=== PATIENT | male | born 1970 | race Caucasian/White ===

== ENCOUNTER 2020-04-23 01:40 | Outpatient (CLI) | payer SELFPAY ==
[2020-04-25 05:30] LABS: Patient Race White; SARS-CoV-2 RNA Undetected (Undetected); SARS-CoV-2 Specimen Source Nasopharynx
== END 2020-04-23 02:00 ==
PROVIDERS: PCP Family Medicine; Visit Provider Nurse Practitioner Family
DX: Z11.59 Encounter for screening for other viral diseases (principal)
CPT/HCPCS: U0003

== ENCOUNTER 2020-12-24 15:42 | Emergency (ER) | payer SELFPAY ==
--- NOTE | 2020-12-24 16:00 | DI.RAD_ITS ---
Exam(s) XR KNEE LT 3V AP,LAT,TREVA EXAM: XR KNEE LT 3V AP,LAT,TREVA CLINICAL HISTORY: Swelling, Pain. TECHNIQUE: 2D digital imaging was performed. COMPARISON: CR,XR XR KNEE RT 3V AP,LAT,TREVA from 12/24/2020 FINDINGS: BONES: No acute fracture is present. No bony destructive lesion is seen. Findings of a prior ACL rep air. JOINTS: The knee is normally aligned. There is a small joint effusion. Degenerative changes are seen in the knee particularly the femoral tibial joints. Joint space narrowing and periarticular spurrin g is present. SOFT TISSUE: Mild soft tissue swelling anterior to the patella. IMPRESSION: 1. No acute fracture or dislocation. 2. Soft tissue swelling anterior to the patella. 3. Mild degenerative changes. 4. Mild joint effusion. DATA REPOSITORY: RADIATION DOSE DELIVERED:
--- NOTE | 2020-12-24 16:00 | DI.RAD_ITS ---
Exam(s) XR FOOT LT COMPLETE EXAM: XR FOOT LT COMPLETE CLINICAL HISTORY: Heel pain, Right toe swelling, R/O Fracture. TECHNIQUE: 2D digital imaging was performed. COMPARISON: No exams were available for comparison FINDINGS: BONES: No acute fracture is present. No bony destructive lesion is seen. JOINTS: No dislocation present. SOFT TISSUE: Normal. Calcification is seen adjacent to the Achilles tendon insertion site consistent with calcific tendinitis. IMPRESSION: No acute fracture or dislocation. DATA REPOSITORY: RADIATION DOSE DELIVERED:
--- NOTE | 2020-12-24 16:00 | DI.RAD_ITS ---
Exam(s) XR FOOT RT COMPLETE EXAM: XR FOOT RT COMPLETE CLINICAL HISTORY: Great toe swelling/R/O Fracture. TECHNIQUE: 2D digital imaging was performed. COMPARISON: No exams were available for comparison FINDINGS: BONES: No acute fracture is present. No bony destructive lesion is seen. JOINTS: No dislocation present. Mild degenerative changes are seen at the 1st MTP joint. SOFT TISSUE: Calcification is seen adjacent to the posterior superior calcaneus consistent with calci fic tendinitis. IMPRESSION: No acute fracture or dislocation. DATA REPOSITORY: RADIATION DOSE DELIVERED:
--- NOTE | 2020-12-24 16:00 | DI.RAD_ITS ---
Exam(s) XR KNEE RT 3V AP,LAT,TREVA EXAM: XR KNEE RT 3V AP,LAT,TREVA CLINICAL HISTORY: Swelling/pain. TECHNIQUE: 2D digital imaging was performed. COMPARISON: CR ABD FLAT UPRIGHT PA CHEST from 04/17/2015 FINDINGS: BONES: No acute fracture is present. No bony destructive lesion is seen. JOINTS: The knee is normally aligned. No joint effusion is seen. SOFT TISSUE: There is swelling of the prepatellar soft tissues. IMPRESSION: 1. No acute fracture or dislocation. 2. Prepatellar soft tissue swelling. DATA REPOSITORY: RADIATION DOSE DELIVERED:
[2020-12-24 16:04] VITALS: BP 134/85; PULSE 87; RESP 18; TEMP 37.2; O2SAT 96
--- NOTE | 2020-12-24 16:16 | W.ED.GENAD ---
Discharge Plan Disposition Patient Disposition: HOME Condition: Stable Discharge Details Clinical Impression: Gout, Prepatellar bursitis Primary Care Provider: Katie Hahn ED Provider: Francie More Home Meds and New Rx's Prescriptions: New cephalexin 500 mg tablet 500 mg PO BID 7 Days Qty: 14 RF: 0 indomethacin 25 mg capsule 25 mg PO TID 7 Days Qty: 21 RF: 0 Discharge Instructions Instructions: Cellulitis (ED), Knee Bursitis (ED), Gout (ED) Additional Instructions: Rest, ice, compression, elevation. Take medications as directed with food. Cut down on alcohol use. Follow up with primary care provider in 3-5 days. Return to ED sooner if any worsening or concerns. Increase oral fluids. Follow-up with Ortho within 1 to 2 weeks if continued pain and swelling. Please return to the ED for worsening redness, fever, chills or any concerns Stand Alone Forms: Work Release Referrals: Katie Hahn NP [Primary Care Provider] - Casey Cruz MD [ [facility] STAFF PHYSICIAN] - 2 weeks Discharge Data Discharge Date/Time-TO BE ENTERED AT DEPARTURE: 12/24/20 19:00 Medical Decision Making 50 year old male presents with Chief c/o of bilateral foot/great toe pain, swelling and bilateral knee swelling and pain x 11 days. Associated with Muscle cramps, overall fatigue and feeling unwell. was seen at urgent care [employer] received Toradol IM and referred here. He does endorse daily alcohol use. PMhx includes Back pain, Colitis, Hyperlipidemia. Labs showed no leukocytosis, absolute neutrophils 6.90 sed rate twenty-four, electrolytes all within normal limits glucose one thirteen, AST forty-one, ALT eighty-five, alk phos one seventy-five, Lyme panel added onto labs. Differential diagnosis includes but not limited to gout, cellulitis, septic joint, Arthritis. Imaging protocol: XR Right foot. Views: 3 or more views. COMPARISON: No relevant prior studies available. FINDINGS: Bones/joints: Osseous mineralization is normal. There are no inflammatory osseous erosive changes. The joint spaces are maintained with scattered minimal degenerative changes. The plantar arch is maintained. There is a tiny posterior calcaneal spur. There is a tiny linear calcification superior to the posterior calcaneal spur suggesting minimal calcific tendinosis of the distal Achilles tendon. No focal osseous lesions are identified. There are no acute displaced fractures or subluxations. Soft tissues: Normal. IMPRESSION: 1. Scattered minimal degenerative changes. 2. Tiny posterior calcaneal spur. 3. Findings suggesting minimal calcific tendinosis of the distal Achilles tendon. Thank you for allowing us to participate in the care of your patient. Dictated and Authenticated by: Edinson Rapp MD Patient received 1 g ceftriaxone IV piggyback for possible cellulitis. Will place patient on 500 mg cephalexin twice daily x7 days and indomethacin 25 mg three times a day x7 days. Described alcohol cessation and gout diet, verbalized understanding. Instructed on rest ice compression elevation. Discussed strict return instructions and to return for any worsening erythema swelling fever or any concerns. Patient verbalized understanding. HPI General Mode of arrival: ambulatory. Date/Time Provider Initiated Documentation: 12/24/20 16:01. Limitations to Documentation: no limitations. Information obtained by: patient. HPI Narrative: 50 year old male presents with Chief c/o of bilateral foot/great toe pain, swelling and bilateral knee swelling and pain x 11 days. Associated with Muscle cramps, overall fatigue and feeling unwell. was seen at urgent care [employer] received Toradol IM and referred here. He does endorse daily alcohol use. PMhx includes Back pain, Colitis, Hyperlipidemia. Related Data Home Medications Medication Instructions Recorded Confirmed cephalexin 500 mg PO BID 7 Days #14 tab 12/24/20 indomethacin 25 mg PO TID 7 Days #21 cap 12/24/20 Previous Rx's Medication Instructions Recorded cephalexin 500 mg PO BID 7 Days #14 tab 12/24/20 indomethacin 25 mg PO TID 7 Days #21 cap 12/24/20 Allergies Allergy/AdvReac Type Severity Reaction Status Date / Time No Known Allergies Allergy Verified 12/24/20 16:11 General Stated Complaint: Orthopedic LEONIDES: 4 Review of Systems Narrative: Constitutional: Negative for weight loss, alert and oriented, well groomed, normal body habitus, appears comfortable. Reports generalized fatigue. HEENT: Denies trauma, headaches, blurry vision, nasal discharge, sore throat, trouble swallowing. Chest: Denies chest pain, palpitations, irregular rhythm, hypertension. Respiratory: Denies Shortness of breath, cough, hemoptysis. GI: Denies abdominal pain, nausea, vomiting, diarrhea, constipation. : Denies dysuria, hematuria, flank pain, rectal bleeding. Neuro: Denies dizziness, blurry vision, weakness, syncope, headache or facial numbness. Musculoskeletal: Reports bilateral foot and toe joint pain and swelling for the last 11 days. Then began with progressive muscle cramps and bilateral knee pain and swelling. Hematologic: Denies easy bruising, intolerance to heat or cold, hair loss. All systems reviewed & are unremarkable except as noted in HPI and below PFSH Medical History Back pain Colitis Hyperlipidemia Surgical History Laparotomy (04/18/15) Social History Smoking/Tobacco Use Status: Current every day Tobacco Type: cigarettes Smoking risk assessment performed?: Yes Alcohol Intake: current Alcohol Intake frequency: 3 or more drinks per day Alcohol type: beer Drug use: Never Substance use type: does not use Do you feel safe at home: Yes Do you feel safe in your relationship?: Yes Exam Narrative Exam Narrative: Constitutional: Alert and oriented x3. Appears stated age. Normal body habitus. Head: Normocephalic, no trauma. Eyes: Pupils PERRLA, Red reflex noted, EOM's intact. Eyelids symmetrical without lesions, discharge, or swelling. ENT: Bilateral TM's WNL, External ear normal to inspection, no mastoid TTP, swelling, or erythema, Nasal turbinates WNL, no nasal discharge. Normal dentition, Posterior pharynx WNL, no exudate. Chest: RRR, Normal S1, S2, distal pulses intact. Resp: Lungs clear to auscultation bilaterally, no wheezes, rales, or rhonchi. Musculoskeletal: Normal gait, 5/5 strength to all four extremities. Right knee erythema, warmth, Pre-patella fluid noted. Left knee erythema noted, less than right. Bilateral swelling and erythema noted to the great toe joint, there is some ecchymosis noted to the right toe. No obvious deformity or crepitus, Skin: No suspicious rashes or lesions. Capillary refill less than 2 sec. Neurologic: Cranial nerves II-XII intact. Alert and oriented x 3. DTR's intact. Hematologic/Lymphatic: No ecchymosis, no lymphadenopathy. Course Vital Signs Vital signs: Vital Signs Temperature 37.2 C 12/24/20 16:04 Pulse 87 12/24/20 16:04 Respiratory Rate 18 12/24/20 16:04 Blood Pressure 134/85 12/24/20 16:04 Pulse Oximetry 96 12/24/20 16:04 Temperature 37.2 C 12/24/20 16:04 Temperature Source Temporal Artery Scan 12/24/20 16:04 Pulse 87 12/24/20 16:04 Respiratory Rate 18 12/24/20 16:04 Respiratory Effort Non-Labored 12/24/20 16:12 Blood Pressure 134/85 12/24/20 16:04 Blood Pressure Position Sitting 12/24/20 16:04 Pulse Oximetry 96 12/24/20 16:04 Oxygen Delivery Method Room Air 12/24/20 16:04 Oxygen Flow Rate 0 12/24/20 16:04 Pain Level 2 12/24/20 16:04
[2020-12-24 16:38] LABS: Abs Immature Grans 0.02 10^3/uL (0.0-0.06); Absolute Basophil Count 0.03 10^3/uL (0.0-0.2); Absolute Eosinophil Count 0.08 10^3/uL (0.0-0.7); Absolute Lymphocyte Count 1.14 10^3/uL (1.2-3.4); Absolute Monocyte Count 0.63 10^3/uL (0.1-0.8); Basophils % 0.3; Eosinophils % 0.9; HCT 43.3 % (40.0-50.0); HGB 14.7 g/dL (13.5-17.5); Immature Grans % 0.2; MCH 32.5 pg (27.0-33.0); MCHC 33.9 % (32.0-36.0); MCV 95.6 fL (80-95); MPV 10.4 fL (8.0-11.0); Monocytes % 7.2; Neutrophils % 78.4; Nucleated RBC 0 %; Platelet Count 248 10^3/uL (130-400); RBC 4.53 10^6/uL (4.36-5.78); RDW 11.7 % (11.8-14.1); RDW-SD 40.8 fL
[2020-12-24] MEDS: Normal Saline 250 ML 500 ML IV (16:38)
[2020-12-24 16:40] LABS: ESR 24 mm/hr (0-15)
[2020-12-24 16:58] LABS: ALT 85 U/L (16-63); AST 41 U/L (15-37); Alkaline Phosphatase 175 U/L (46-116); Anion Gap 9.3 mmol/L (3-11); BUN 18 mg/dL (7-18); Bilirubin, Total 0.3 mg/dL (0.2-1.0); CO2 28.7 mmol/L (21.0-32.0); Calcium 8.9 mg/dL (8.5-10.1); Chloride 104 mmol/L (98-107); Glucose 113 mg/dL (74-106); Magnesium 2.4 mg/dL (1.8-2.4); Sodium 142 mmol/L (136-145); Total Protein 7.6 g/dL (6.4-8.2); Uric Acid 6.7 mg/dL (3.5-7.2)
[2020-12-24] MEDS: cefTRIAXone 1 GM/50 ML BAG IVPB (18:08)
--- NOTE | 2020-12-24 18:12 | DI.VRAD_ITS ---
PROCEDURE INFORMATION: Exam: XR Right Foot Exam date and time: 12/24/2020 5:24 PM Age: 50 years old Clinical indication: Swelling, leg or foot TECHNIQUE: Imaging protocol: XR Right foot. Views: 3 or more views. COMPARISON: No relevant prior studies available. FINDINGS: Bones/joints: Osseous mineralization is normal. There are no inflammatory osseous erosive changes. The joint spaces are maintained with scattered minimal degenerative changes. The plantar arch is maintained. There is a tiny posterior calcaneal spur. There is a tiny linear calcification superior to the posterior calcaneal spur suggesting minimal calcific tendinosis of the distal Achilles tendon. No focal osseous lesions are identified. There are no acute displaced fractures or subluxations. Soft tissues: Normal. IMPRESSION: 1. Scattered minimal degenerative changes. 2. Tiny posterior calcaneal spur. 3. Findings suggesting minimal calcific tendinosis of the distal Achilles tendon. Dictated and Authenticated by: Edinson Rapp MD. Ordering:SHALA Marmolejo MD
--- NOTE | 2020-12-24 18:15 | DI.VRAD_ITS ---
PROCEDURE INFORMATION: Exam: XR Left Foot Exam date and time: 12/24/2020 5:26 PM Age: 50 years old Clinical indication: TECHNIQUE: Imaging protocol: XR Left foot. Views: 3 or more views. COMPARISON: No relevant prior studies available. FINDINGS: Bones/joints: The joint spaces are maintained, with scattered minimal degenerative changes. Osseous mineralization is normal. There are no inflammatory osseous erosive changes. No focal osseous lesions are identified. There are no acute displaced fractures or subluxations. The plantar arch is maintained. There is focal calcification measuring up to 7 x 4 mm posterior to the calcaneus suggesting mild calcific tendinosis of the distal Achilles tendon. There is a 2 mm ossified body along the lateral aspect of the 1st interphalangeal joint which may be sequela of old trauma. Soft tissues: Normal. IMPRESSION: 1. Findings of mild calcific tendinosis of the distal Achilles tendon. 2. Scattered minimal degenerative changes. Dictated and Authenticated by: Edinson Rapp MD. Ordering:SHALA Marmolejo MD
--- NOTE | 2020-12-24 18:20 | DI.VRAD_ITS ---
PROCEDURE INFORMATION: Exam: XR Right Knee Exam date and time: 12/24/2020 4:16 PM Age: 50 years old Clinical indication: Swelling, leg or foot TECHNIQUE: Imaging protocol: XR Right knee. Views: 3 views. COMPARISON: No relevant prior studies available. FINDINGS: Bones/joints: Osseous mineralization is normal. There are no inflammatory osseous erosive changes. There are no acute displaced fractures or subluxations. The joint spaces are maintained without degenerative changes. There is no evidence of a joint effusion. Soft tissues: There is soft tissue swelling anterior to the patella and the superior aspect of the patellar tendon. No soft tissue air is identified. IMPRESSION: 1. No acute fracture or subluxation. 2. Soft tissue swelling anterior to the patella may be posttraumatic or could reflect prepatellar bursitis. Recommend clinical correlation. Dictated and Authenticated by: Edinson Rapp MD. Ordering:SHALA Marmolejo MD
--- NOTE | 2020-12-24 18:22 | DI.VRAD_ITS ---
PROCEDURE INFORMATION: Exam: XR Left Knee Exam date and time: 12/24/2020 5:31 PM Age: 50 years old Clinical indication: Swelling or effusion of joint; Knee; Prior surgery TECHNIQUE: Imaging protocol: XR Left knee. Views: 3 views. COMPARISON: No relevant prior studies available. FINDINGS: Bones/joints: There are postoperative changes of anterior cruciate ligament repair. Osseous mineralization is normal. There are no inflammatory osseous erosive changes. There is mild joint space narrowing of the medial compartment of the tibiofemoral joint with mild periarticular spurring. The patellofemoral joint appears maintained. Findings suggest a tiny suprapatellar joint effusion. There is a tiny linear calcification in the region of the suprapatellar bursa which may represent sequela of calcific bursitis. There are no acute displaced fractures or subluxations. Soft tissues: There is mild soft tissue swelling anterior to the patella. IMPRESSION: 1. Postoperative changes of ACL repair. 2. Mild degenerative changes of the tibiofemoral joint. 3. Tiny suprapatellar effusion. 4. Soft tissue swelling anterior to the patella may be posttraumatic or could reflect prepatellar bursitis. Recommend clinical correlation. Dictated and Authenticated by: Edinson Rapp MD. Ordering:SHALA Marmolejo MD
[2020-12-24 18:34] VITALS: BP 129/84; PULSE 68; O2SAT 96
[2020-12-24 18:35] VITALS: O2SAT 97
[2020-12-24 18:36] VITALS: BP 141/86; PULSE 75; O2SAT 96
[2020-12-24 18:37] VITALS: O2SAT 96
[2020-12-24 18:38] VITALS: O2SAT 96
[2020-12-26 10:59] LABS: Lyme Ab w Rflx to Lyme Confirm Negative (Negative)
[2020-12-27 17:52] LABS: Anaplasma phagocytophilum Negative (Negative); B. miyamotoi PCR Negative (Negative); Babesia divergens/MO-1 Negative (Negative); Babesia duncani Negative (Negative); Babesia microti Negative (Negative); Ehrlichia chaffeensis Negative (Negative); Ehrlichia ewingii/canis Negative (Negative); Ehrlichia muris eauclairensis Negative (Negative)
== END 2020-12-24 19:00 | disposition home or self-care (01) ==
PROVIDERS: Emergency Provider Registered Nurse Emergency
DX: M10.9 Gout, unspecified (principal); M70.40 Prepatellar bursitis, unspecified knee
CPT/HCPCS: 36415; 73562; 80053; 85652; 87798; 96361; 96365; 99284; 73630; 83735; 84550; 85025; 86618; J0696

== ENCOUNTER 2022-10-01 01:54 | Outpatient (CLI) | payer SELFPAY ==
--- NOTE | 2022-10-01 07:30 | DI.CT_ITS ---
Exam(s) CT CHEST W EXAM: CT CHEST W CLINICAL HISTORY: increasing SOB on exertion,smoker,r06.09,f17.200 TECHNIQUE: Imaging Protocol: Axial computed tomography images with coronal and sagittal reformatted images were created and reviewed CONTRAST MATERIAL: Intravenous: Omnipaque 350Contrast volume:70 mL. COMPARISON: No exams were available for comparison FINDINGS: Tracheobronchial tree: Patent where visualized. Pulmonary parenchyma: No consolidation or dominant measurable mass. No architectural distortion. Ther e is scarring in the right lower lobe. Mediastinum and Shahla: No dominant adenopathy or fluid collection. The esophagus is unremarkable. Thyroid gland: Unremarkable. Pleura: No effusion or pneumothorax. Heart: The heart is not dilated. Mild coronary artery calcification. No pericardial effusion. Aorta: Thoracic aorta non-dilated. Atherosclerosis. Pulmonary arteries: Due to the bolus timing, pulmonary emboli cannot be evaluated. Upper abdomen: In the dome of the liver, there is a 3.5 x 4 x 4.3 cm mass. It shows peripheral nodu lar enhancement. The finding is suggestive of a hepatic hemangioma. Lymph nodes: Within normal limits. Bones: Within normal limits for the patient's age. Soft tissues: Unremarkable. IMPRESSION: 1. No evidence of a pulmonary mass or thoracic adenopathy. 2. 3.5 x 4 x 4.3 cm mass in the dome of the liver which shows peripheral nodular enhancement. This i s suggestive of a hepatic hemangioma. A CT or MRI of the liver using the hepatic hemangioma protocol is recommended for further evaluation. Unexpected findings RADIATION DOSE DELIVERED: 495.48mGy.cm Total DLP DATA REPOSITORY: All CT scans at this facility are submitted to the National Radiology Data Registry (NRDR) Dose Index Registry (DIR) with the [employer] (A[employer]). RADIATION OPTIMIZATION: All CT scans at this facility use at least one of these dose optimization te chniques: automated exposure control; mA and/or kV adjustment per patient size (includes targeted exa ms where dose is matched to clinical indication); or iterative reconstruction.
[2022-10-01 14:46] LABS: HCT 41.7 % (40.0-50.0); HGB 14.6 g/dL (13.5-17.5); MCV 91 fL (80-95); Platelet Count 219 10^3/uL (130-400); RBC 4.56 10^6/uL (4.36-5.78); RDW 12.3 % (11.8-14.1); RDW-SD 40.8 fL; WBC 5.22 10^3/uL (4.4-10.8)
[2022-10-01 14:48] LABS: MPV 10.5 fL (8.0-11.0)
[2022-10-01 14:55] LABS: Calcium 8.9 mg/dL (8.5-10.1); Glucose 107 mg/dL (74-106)
[2022-10-01 14:56] LABS: AST 46 U/L (15-37); Alkaline Phosphatase 103 U/L (46-116); Anion Gap 5.4 mmol/L (3-11); BUN 18 mg/dL (7-18); Bilirubin, Total 0.4 mg/dL (0.2-1.0); CO2 29.6 mmol/L (21.0-32.0); CREATININE 1.2 mg/dL (0.70-1.30); Calculated LDL 135 mg/dL (<100); Chloride 106 mmol/L (98-107); Cholesterol 254 mg/dL (<200); Estimated GFR 73.22 (mL/min/1.73m2); HDL Cholesterol 42 mg/dL (40-60); Potassium 3.9 mmol/L (3.5-5.1); Sodium 141 mmol/L (136-145); Total Protein 7.2 g/dL (6.4-8.2); Triglyceride 388 mg/dL (<150)
[2022-10-01 14:57] LABS: ALT 132 U/L (16-63); TSH (W/Ref FT4) 1.18 uIU/mL (0.36-3.74)
[2022-10-01] MEDS: Omnipaque 350 MG/ML 100 ML BTL 70 ML IJ (14:57)
[2022-10-01] MEDS: Normal Saline - Diluent 50 ML VIAL IJ (14:57)
== END 2022-10-01 02:14 ==
PROVIDERS: PCP Nurse Practitioner Family; Visit Provider Nurse Practitioner Family
DX: R06.02 Shortness of breath (principal); R06.09 Other forms of dyspnea; F17.210 Nicotine dependence, cigarettes, uncomplicated; J98.4 Other disorders of lung; K76.89 Other specified diseases of liver; R53.83 Other fatigue; Z13.220 Encounter for screening for lipoid disorders
CPT/HCPCS: 80053; 80061; 85027; 71260; 84443; J3490

== ENCOUNTER 2022-10-30 16:30 | Outpatient (CLI) | payer SELFPAY ==
--- NOTE | 2022-10-30 15:30 | DI.US_ITS ---
APPROVED REPORT EXAM: Comprehensive 2D, Doppler, and color-flow Echocardiogram Patient Location: Out-Patient Supervisor Stave Finishing: Sue Bauer RDCS (AE) Indications: Increasing SOB, Nicotine dependence Other Information Study Quality: Good Conclusion Normal left ventricular wall thickness and chamber size. Estimated ejection fraction is 60%. Wall m otion is normal Normal right ventricular size and systolic function Both atria are normal in size Aortic valve is trileaflet with mild regurgitation Made right ventricular systolic pressure is 22 mmHg Wall motion Left Ventricle The left ventricle is normal size. The left ventricular systolic function is normal. The left ventric ular ejection fraction is within the normal range. There is normal left ventricular wall thickness. T here is normal LV segmental wall motion. There is no ventricular septal defect visualized. LVEF is 60 %. Right Ventricle The right ventricle is normal size. The right ventricular systolic function is normal. The RVSP is 22 .5mmHg. Atria The left atrium size is normal. The right atrium size is normal. The interatrial septum is intact wit h no evidence for an atrial septal defect. Aortic Valve The aortic valve is normal in structure. Aortic valve is trileaflet. There is no aortic valvular sten osis. Mild aortic regurgitation. Mitral Valve The mitral valve is normal in structure. No evidence of mitral valve stenosis. Trace mitral regurgita tion. Tricuspid Valve The tricuspid valve is normal in structure. There is no tricuspid valve stenosis. Trace tricuspid re gurgitation. Pulmonic Valve The pulmonary valve is normal in structure. There is no pulmonic valvular stenosis. There is no pulmo razia valvular regurgitation. Great Vessels The aortic root is normal in size. The ascending aorta is normal in size. Aortic arch is normal in ca liber. IVC is normal in size and collapses >50% with inspiration. Pericardium There is no pericardial effusion. 2D Dimensions IVSD d PLAX 0.99 cm M: 0.6-1.2 LV Vol A2C d MOD 112.2 mL LVPW d PLAX 0.97 cm M: 0.6 - 1.2 LV Vol A4C d MOD 110.9 mL LVID d PLAX 5.07 cm M: 4.2 - 5.8 LA vol/ BSA A2C s A-L 17.8 mL/m2 LVDs 3.20 cm M: 2.5 - 4.0 LA vol/ BSA A4C s A-L 14.6 mL/m2 Ao Root d 3.06 cm M: 3.1 - 3.7 LA Vol/ BSA Biplane s A-L 16.4 mL/m2 RA Area A4C 12.80 cm2 LA Area A4C s MOD 11.94 cm2 RA Vol/ BSA A4C s A-L 15.7 mL/m2 LA Area A2C s MOD 13.41 cm2 Ao Asc Diam d 3.55 cm M: 2.6 - 3.4 LV EF A4C MOD 59.9 % LV EF Teichholz 65.3 % LV EF A2C MOD 60.0 % LVEF (Dugan's) 59.12 % M: 52 - 72 LV EF Biplane MOD 59.1 % LV Volume 86.83 mL M: 62 - 150 SV 68.13 mL LV Volume Index 44.07 mL/m2 M: 34 - 74 SV Index 34.55 mL/m2 LV Vol Biplane MOD 115.2 mL FS 36.00 % M-Mode TAPSE 2.42 cm (M/F) >1.7 LV Diastology MV E' medial 0.059 (>0.07 m/s) E/A Ratio 0.7 LV E/e MED 8.15 (<14) MV E Vmax 0.48 (0.4-1.3 m/s) MV E' lateral 0.136 (>0.1 m/s) MV A Vmax 0.65 (0.4-1.3 m/s) LV E/e LAT 3.50 (<14) MV E/A Ratio 0.72 MV E/E' medial 8.16 MV E/E' lateral 3.53 Aortic Valve LVOT Area 3.52 cm2 AoV Area Vmax 2.84 cm2 LVOT Vmax 1.07 m/s AoV Area/ BSA (Vmax) 1.44 cm2/m2 LVOT Mean Mario. 0.70 m/s JITENDRA Mean Mario. 2.83 cm2 LVOT Peak Grad 4.6 mmHg JITENDRA Mean Mario. Index 1.44 cm2/m2 LVOT Mean Grad 2.3 mmHg AR DT 2327 msec LVOT VTI 0.188 m AR PHT 675 msec LVOT Diam s 2.10 cm AoV Vmax 1.33 m/s Velocity Ratio 0.80 AoV Mean Mario. 0.87 m/s AoV Peak Grad 7.0 mmHg LVOT SV 65.95 mL AoV Mean Grad 3.4 mmHg AoV VTI 0.216 m AoV Area VTI 3.05 cm2 AoV Area/ BSA (VTI) 1.55 cm/m2 Mitral Valve MV DT 268 (160-240 msec) MV PHT 78 msec MV Area PHT 2.83 cm2 Pulmonary Valve PV Vmax 0.91 (0.5-1.5 m/s) RVOT Peak Gr. 1.77 mmHg PV Peak Grad 3.3 mmHg RVOT Mean Gr. 0.85 mmHg PV Mean Grad 1.8 mmHg RVOT VTI 0.114 m PV VTI 0.176 m RVOT Vmax 0.67 m/s Tricuspid Valve TR Peak Grad 19.5 mmHg TR Vmax 2.21 m/s RA Pressure 3.00 mmHg RVSP (TR) 22.5 mmHg
== END 2022-10-30 16:50 ==
PROVIDERS: PCP Nurse Practitioner Family; Visit Provider Nurse Practitioner Family
DX: F17.200 Nicotine dependence, unspecified, uncomplicated (principal); R06.09 Other forms of dyspnea; Z78.9 Other specified health status; Z82.49 Family history of ischemic heart disease and other diseases of the circulatory system
CPT/HCPCS: 93306

== ENCOUNTER 2024-05-06 22:15 | Outpatient (REF) | payer MEDICAID, SELFPAY ==
[2024-05-06 21:21] LABS: ALT 67 U/L (16-63); AST 29 U/L (15-37); Albumin 4.2 g/dL (3.4-5.0); Alkaline Phosphatase 90 U/L (46-116); Anion Gap 8.7 mmol/L (3-11); BUN 22 mg/dL (7-18); Bilirubin, Total 0.38 mg/dL (0.2-1.0); CO2 29.3 mmol/L (21.0-32.0); Calcium 9.2 mg/dL (8.5-10.1); Calculated LDL 152 mg/dL (<100); Chloride 106 mmol/L (98-107); Cholesterol 247 mg/dL (<200); Glucose 95 mg/dL (74-106); HDL Cholesterol 44 mg/dL (40-60); Potassium 4.3 mmol/L (3.5-5.1); Sodium 144 mmol/L (136-145); Triglyceride 257 mg/dL (<150)
[2024-05-06 22:06] LABS: COMMENT (LAB VIEW ONLY) 112.43 mg/dL; Microalb ug/mg Crea 4.7 ug/mg Cr
== END 2024-05-06 22:16 | disposition home or self-care (01) ==
LOC: LBN 22:15
PROVIDERS: PCP Nurse Practitioner Family; Visit Provider Nurse Practitioner Family
DX: E78.5 Hyperlipidemia, unspecified (principal); I10 Essential (primary) hypertension
CPT/HCPCS: 80053; 80061; 82043; 82570

== ENCOUNTER 2024-05-11 00:52 | Outpatient (CLI) | payer MEDICAID, SELFPAY ==
--- NOTE | 2024-05-11 07:30 | DI.RAD_ITS ---
Exam(s) XR SHOULDER RT COMPLETE 2+V EXAM: XR SHOULDER RT COMPLETE 2+V CLINICAL HISTORY: rt shoulder pain tooth ache,ARTHRALGIA,M25.50. TECHNIQUE: 2D digital imaging was performed. COMPARISON: No exams were available for comparison FINDINGS: Five views No evidence of fracture or dislocation nor abnormal soft tissue calcifications in the subacromial spa ce. There is no calcification above the a chromium, as seen on in the opposite-left shoulder. There are no obvious degenerative changes in the glenohumeral joint. There are mild degenerative changes in the AC joint. Bone density normal. No osseous lesions evident. IMPRESSION: No significant osseous findings in the right shoulder. DATA REPOSITORY: RADIATION DOSE DELIVERED:
--- NOTE | 2024-05-11 07:30 | DI.RAD_ITS ---
Exam(s) XR KNEE LT 3V AP,LAT,TREVA EXAM: XR KNEE LT 3V AP,LAT,TREVA CLINICAL HISTORY: H/O SURGERY 2008, LT KNEE PAIN,M25.562. TECHNIQUE: 2D digital imaging was performed. COMPARISON: CR,XR XR KNEE LT 3V AP,LAT,TREVA from 12/24/2020 FINDINGS: 3 views Again noted is evidence of prior ACL surgery. There is no evidence of fracture nor obvious joint effusion. Previously described small calcificatio n in the suprapatellar bursa is unchanged in size and position from 2020. The main change here is interval narrowing of the medial compartment, more so than previous. Small m arginal osteophytes off the medial compartment. Lateral compartment maintains normal height. No oss eous lesions. IMPRESSION: Prior ACL surgery again noted. Progression of degenerative narrowing of the medial compartment when compared to 2020. DATA REPOSITORY: RADIATION DOSE DELIVERED:
--- NOTE | 2024-05-11 07:30 | DI.RAD_ITS ---
Exam(s) XR SHOULDER LT COMPLETE 2+V EXAM: XR SHOULDER LT COMPLETE 2+V CLINICAL HISTORY: left shoulder pain,M25.512. TECHNIQUE: 2D digital imaging was performed. COMPARISON: CR XR SHOULDER RT COMPLETE 2+V from 05/11/2024 FINDINGS: Five views No evidence of fracture or dislocation of the glenohumeral joint and no abnormal soft tissue calcific ations in the subacromial space nor diminution of the subacromial space. AC joint appears unremarkab le. There is a small 2 millimeter calcific density just above the level of the superior cortex of th e acromion. Coracoid process is intact. No evidence of os acromial. IMPRESSION: No significant osseous findings in the left shoulder. There is a small 2 millimeter calcific density above the a chromium incidentally noted. DATA REPOSITORY: RADIATION DOSE DELIVERED:
== END 2024-05-11 01:12 ==
LOC: DI 00:53
PROVIDERS: PCP Nurse Practitioner Family; Visit Provider Nurse Practitioner Family
DX: M25.511 Pain in right shoulder (principal); M25.512 Pain in left shoulder; M25.562 Pain in left knee
CPT/HCPCS: 73562; 73030

== ENCOUNTER 2024-06-13 15:59 | Outpatient (CLI) | payer MEDICAID, SELFPAY ==
--- NOTE | 2024-06-13 09:00 | DI.RAD_ITS ---
Exam(s) XR HIP LT COMPLETE AP PELVIS EXAM: XR HIP LT COMPLETE AP PELVIS CLINICAL HISTORY: left knee pain. TECHNIQUE: 2D digital imaging was performed. Two views. COMPARISON: No exams were available for comparison FINDINGS: BONES: No acute fracture is present. No bony destructive lesion is seen. JOINTS: No dislocation present. The SI joints and pubic symphysis are intact. Hip joint spaces are ma intained. There is mild acetabular spurring, greater on the left. SI joints and pubic symphysis are unremarkable. SOFT TISSUE: Normal. IMPRESSION: Mild degenerative changes of the left hip. DATA REPOSITORY: RADIATION DOSE DELIVERED:
--- NOTE | 2024-06-13 09:18 | DI.RAD_ITS ---
Exam(s) XR KNEE LT 1V EXAM: XR KNEE LT 1V CLINICAL HISTORY: left knee pain. TECHNIQUE: 2D digital imaging was performed. Merchant's view. COMPARISON: CR XR KNEE LT 3V AP,LAT,TREVA from 05/11/2024 FINDINGS: BONES: No acute fracture is present. No bony destructive lesion is seen. JOINTS: The patellofemoral joint is normally aligned. No joint space narrowing. There is mild spurr ing at the articular aspect of the patella. SOFT TISSUE: Normal. IMPRESSION: Mild degenerative changes at the patellofemoral joint. DATA REPOSITORY: RADIATION DOSE DELIVERED:
== END 2024-06-13 16:00 | disposition home or self-care (01) ==
LOC: DIORS 15:59
PROVIDERS: PCP Nurse Practitioner Family; Visit Provider Physician Assistant
DX: M25.562 Pain in left knee (principal); M16.12 Unilateral primary osteoarthritis, left hip
CPT/HCPCS: 73502; 73560

== ENCOUNTER 2024-07-05 03:07 | Outpatient (CLI) | payer MEDICAID, SELFPAY ==
--- NOTE | 2024-07-05 06:00 | DI.MRI_ITS ---
Exam(s) MR UPPER JOINT LT WO EXAM: MR UPPER JOINT LT WO CLINICAL HISTORY: PAIN, ?RTC TEAR,m25.512. TECHNIQUE: Multiplanar multisequence MRI was performed. COMPARISON: None. FINDINGS: Exam mildly limited by motion. BONES: There is no fracture or contusion pattern. JOINTS:The acromioclavicular joint shows a small amount of fluid. Minimal inferior spurring. The glenohumeral joint is normal. TENDONS: Supraspinatus: Mild thickening and edema. Focal full-thickness tear seen distally and anteriorly. T here is approximately 1 cm retraction of fibers. Infraspinatus: Unremarkable. Subscapularis: Unremarkable. Teres Minor: Unremarkable. Biceps and Brookesmith: Unremarkable. Mildly obscured by artifact. MUSCLES: Unremarkable. GLENOID LABRUM: Unremarkable on this noncontrast examination. SOFT TISSUES: Unremarkable. BURSAE: Subacromial and subdeltoid bursae shows a small amount fluid. . IMPRESSION: Full-thickness tear with mild retraction of the anterior supraspinatus tendon. DATA REPOSITORY:
--- NOTE | 2024-07-05 06:00 | DI.MRI_ITS ---
Exam(s) MR LOWER JOINT LT WO EXAM: MR LOWER JOINT LT WO CLINICAL HISTORY: PAIN,djd,h/o repair anterior cruciate ligament,m17.12,z98.890. TECHNIQUE: Multiplanar multisequence MRI was performed. COMPARISON: CR XR KNEE LT 3V AP,LAT,TREVA from 05/11/2024 CR XR KNEE LT 1V from 06/13/2024 FINDINGS: BONES: There is no fracture or contusion pattern. Degenerative signal changes in the medial tibial pl ateau. Periarticular spurring. JOINTS: A small joint effusion is present. There are 3 small loose bodies seen anterior to the late ral tibial plateau. Articular cartilage: Patellofemoral joint: Small superficial focal defect at the patellar apex. Medial femoral tibial joint: Cartilage thinning over the medial femoral condyle and medial tibial pl ateau extending down to bone. Lateral femoral tibial joint: Focal thinning at the cartilage overlying the lateral femoral condyle. LIGAMENTS/TENDONS: Anterior Cruciate: Prior ACL repair which appears intact. Posterior Cruciate: Unremarkable. Medial Collateral:Unremarkable. Lateral Collateral ligament complex: Unremarkable. Extensor mechanism: Unremarkable. Medial retinaculum: Unremarkable. Lateral retinaculum: Unremarkable. Popliteus: Unremarkable. MENISCI: The medial meniscus is peripherally displaced and shows significant disc degenerative intrasubstance signal in the posterior horn and body. The lateral meniscus is unremarkable. MUSCLES: Unremarkable. SOFT TISSUES: Small multiloculated Kaufman's cyst. IMPRESSION: Advanced degenerative changes of the medial femoral tibial joint with degenerative changes of the med ial meniscus, cartilage thinning it extending down to bone and periarticular spurring. Intact ACL repair. Small joint effusion. Joint space loose bodies seen anterior to the lateral tibial plateau. DATA REPOSITORY:
== END 2024-07-05 03:27 ==
LOC: DI 03:08
PROVIDERS: PCP Nurse Practitioner Family; Visit Provider Student in an Organized Health Care Education/Training Program
DX: M75.122 Complete rotator cuff tear or rupture of left shoulder, not specified as traumatic (principal); M17.12 Unilateral primary osteoarthritis, left knee; Z98.890 Other specified postprocedural states
CPT/HCPCS: 73721; 73221

== ENCOUNTER 2024-09-08 09:00 | Day surgery (SDC) | payer MEDICAID, SELFPAY ==
[2024-09-08] VITALS (19 sets, daily range): BP systolic 115–142; BP diastolic 77–99; PULSE 61–74; RESP 8–21; TEMP 36.4–36.8; O2SAT 94–100; BMI 26.4
--- NOTE | 2024-09-08 07:13 | W.PM.DSUDISC ---
Date of service: 09/08/24 Discharge Plan Disposition Patient Disposition: Home Condition: Stable Discharge Details Attending Provider: Mika Sawyer Primary Care Provider: Jose Luis Taylor Home Meds and New Rx's Prescriptions: New naproxen 250 mg tablet 250 - 500 mg PO BID PRN (Reason: Moderate pain) Qty: 40 0RF oxycodone-acetaminophen [Percocet] 5-325 mg tablet 1 - 2 tab PO Q4H MDD 30 mg PRN (Reason: Moderate to severe pain) Qty: 18 0RF Continued naproxen sodium [Aleve] 220 mg capsule 220 mg PO DAILY PRN naloxone [Narcan] 4 mg/actuation spray,non-aerosol 1 spray intranasal Q2-3M PRN (Reason: opioid overdose) Qty: 2 4RF Rx Instructions: spray 1 dose into ONE nostril; alternate nostrils w each dose until help arrives omeprazole 20 mg capsule,delayed release(DR/EC) 20 mg PO DAILY Qty: 90 4RF tramadol 50 mg tablet 50 mg PO DAILY PRN (Reason: pain) Qty: 30 0RF Discharge Instructions Additional Instructions: Surgery: Left shoulder arthroscopy with rotator cuff repair (supraspinatus), biceps tenodesis, extensive debridement, and subacromial decompression 09/08/24 Activity: For 6 weeks, you should keep your arm at your side in a neutral position at all times except for physical therapy. Do not try to lift or raise your arm using your own muscles. You should use the sling whenever you are out of the house. At home it is best to remove the sling and rest the arm on a pillow at your side or support the operative side with your other hand. You may allow the arm to dangle at your side. A physical therapy prescription will be sent electronically to begin in about 3 weeks. Prescriptions: Naproxen 250 mg take 1-2 every 12 hours with a meal as needed for moderate pain Oxycodone?acetaminophen 5?325 mg take 1-2 every 4-6 hours as needed for severe pain (do not use at the same time as acetaminophen) You may use [id number] Tylenol (acetaminophen) as needed for mild pain. These pain medications may be taken all at once or in different combinations as needed. Also, recommend Colace (docusate) as a stool softener as surgery and pain medicine cause constipation. You may try [id number] diphenhydramine (Benadryl) 25-50 mg nightly as a sleep aid Dressings: Remove shoulder bandage after 3 days. Leave the sticky Steri-Strips in place until they fall off or remove them after you shower. Cover the incisions with Band-Aids or leave them open to air. You may shower after 5 days. Follow-up: 10-[address] Sawyer You may take off the leg compression stockings this evening at home. You may also leave them on a few days longer if you have a history of leg swelling or edema. Let us know right away if you develop any redness, drainage, fevers, chest pain, or trouble breathing. Do not drink alcohol or drive for at least 24 hours after anesthesia. Please call the office during business hours with any questions or concerns. Discharge Orders Discharge Orders: Discharge Order (Routine); Ordered 09/08/24 Ordered By: Randall Mcdonnell DS: Diagnosis Discharge Diagnosis (1) Rotator cuff tear, left: Status: Acute (2) SLAP lesion of left shoulder: Status: Acute
--- NOTE | 2024-09-08 07:33 | ROE_ITS ---
Operative Note Operative Note PRE-OP DIAGNOSIS: Left: 1. Rotator cuff tear 2. SLAP tear 3. Bursitis POST-OP DIAGNOSIS: same PROCEDURE: Left: 1. Rotator cuff repair, CPT# 07563. This involved repair of the supraspinatus using anchors and sutures to reattach the rotator cuff back to the footprint of the greater tuberosity. 2. Arthroscopic biceps tenodesis, CPT# 27307. This involved arthroscopically suturing and reattaching the long head of the biceps tendon to the proximal humerus at the superior margin of the bicipital groove with a screw at the correct tension. 3. Extensive debridement, CPT# 47925. This involved using arthroscopic hand instruments, power instruments, and radiofrequency instruments to release the long head of the biceps tendon and debride areas of labral tearing, synovitis, and SLAP tearing working within the glenohumeral joint anteriorly, superiorly and posteriorly. 4. Subacromial decompression with partial acromioplasty, CPT# 36692. This involved using arthroscopic power instruments and a radiofrequency wand to complete a bursectomy and smooth the undersurface of the acromion. The assistant purchasing manager was medically required in order to help assist in techniques above, which require positioning the arm, holding the arthroscope, and man ipulating multiple instruments and sutures at the same time. This cannot be done without the help of an experienced assistant purchasing manager. SURGEON: Mika Sawyer COMPUTER PROGRAMMER CHIEF: Randall Mcdonnell ANESTHESIA TYPE: Local By Surgeon, General LMA/ETT and Primary Nerve Block Refer to Anesthesia Record ESTIMATED BLOOD LOSS: 5 PATHOLOGY: none sent COMPLICATIONS: None Patient was transported to: PACU Patient's condition: stable Implants: Arthrex: 4.75mm SwiveLocks x 2 Indications: The patient was diagnosed with the above conditions and appropriately indicated for surgical intervention. Please see complete medical record for details. Findings: Exam under anesthesia: Full range of motion, no instability Glenohumeral joint: Moderately high grade intra-articular biceps tendon tearing. Disruption and unstable biceps tendon anchor and a SLAP tear, which had a more posterior attachment. Extension of the labral tearing posteriorly and anteriorly. Mild subscapularis fraying tearing. Moderate thinning but no complete tearing of the supraspinatus articular side. Intact articular cartilage. Subacromial space: Mild bursitis. Obvious high-grade near?complete small crescent supraspinatus rotator cuff tear otherwise surrounded by good rotator cuff tissue. Procedure Description: In the operating room, general anesthesia was induced. Bilateral shoulders were examined. The patient was positioned in the beachchair position. All bony prominences were well-padded. Preoperative antibiotics were administered. The shoulder was prepped and draped in the usual sterile fashion. The correct patie nt, procedure, and side of the procedure were all verified prior to incision. Starting through the posterior portal a standard complete diagnostic arthroscopy was performed of the glenohumeral joint including inspection of the long head of the biceps, anterior and superior labrum, subscapularis tendon, supraspinatus and infraspinatus tendons, and axillary recess. The glenoid and humeral head cartilage as well as the posterior labrum were inspected from an anterior viewing portal. Significant findings and interventions noted above. An all-arthroscopic suprapectoral biceps tenodesis was performed through an anterior portal using a Loop N Tack method with a SutureTape FiberLink cinched around and through the tendon. The posterior direction of the tendon made working angle challenging so decision was made to go to the subacromial space and then return to the joint attention with an additional working portal through the rotator cuff tear. Starting through the posterior portal, the arthroscope was directed into the subacromial space. A lateral 50 yard line lateral portal was created. A combination of power instruments and a radiofrequency ablator were used to debride bursitis anteriorly, posteriorly, and laterally as well as expose and smooth bone spurring on the undersurface of the acromion. The coracoacromial ligament was partially released. The bursectomy was completed viewing laterally and working from posteriorly and the rotator cuff was thoroughly inspected with findings noted above. The supraspinatus tear was thoroughly examined. The tendon had good tuberosity coverage, but lifting it up demonstrated unhealthy tendon void beneath that was about a centimeter by a centimeter in size. This soft tissue tendon was debrided as well as the bone beneath established and knifes roughened bleeding bony bed and optimal tendon for healing. The medial row remnant was still intact, but could be seen as quite very thin so it was debrided to be full- thickness to optimize repair and tissue grabs incorporating healthy genao tendon tissue. Once the supraspinatus repair was set up, the arthroscope was redirected into the glenohumeral joint. With the additional working portal through the supraspinatus tear the biceps tendon was tenotomized from the superior labrum. It was then fixated at the superior margin of the bicipital groove with a knotless 4.75 mm swivel lock anchor. The extra repair suture was then shuttled around the tendon stump back through the anchor eyelet mechanism and tension adding a nice additional security to the biceps repair, which tabled strong and stable with good biceps arm contour. Back in the subacromial space, the supraspinatus tear was ready for repair. The arm position was optimized. The self retrieving suture passer used to place an inverted horizontal mattress FiberTape nicely incorporating good tendon with an additional suture tape FiberLink in cinch mode more posteriorly incorporating the most posterior remnants of tendon tissue. All tendon tails were brought out laterally to a cleared lateral area and demonstrated good configuration, tissue hold, and repair. The repair was completed to a single lateral row 4.75 mm SwiveLock anchor with appropriate tension. The tendon repair had good fixation and was stable through probing and motion. There was no additional tear requiring repair. The shoulder was drained of arthroscopic fluid. All portal sites were copiously irrigated. These incisions were closed using 3-0 Monocryl in a buried fashion and then covered with Mastisol, Steri-Strips, Xeroform, dry gauze, and ABDs. The dressings were covered and secured with Medipore tape. The operative extremity was placed into a sling for immobilization. The patient awoke from anesthesia without complication and was transferred to the recovery room in a stable condition. Date of Procedure: 09/08/24
[2024-09-08] MEDS: Lactated Ringers 1,000 ML 30 ML IV (10:02)
--- NOTE | 2024-09-08 10:04 | W.ANESPRE ---
General Info Date of Service Date Performed: 09/08/24 Height: 5 ft 8.5 in Weight: 79.9 kg Body Mass Index (BMI): 26.4 Surgical Procedure: Operation Date: 09/08/24 09:10 Proposed Procedure Side Surgeon p Shoulder Rotator Cuff Arthroscopic w/Extensive Debridement, Biceps Tenodesis, Subacromial Decompression Left Mika Sawyer MD Actual Procedure Side Surgeon p Shoulder Rotator Cuff Arthroscopic w/Extensive Debridement, Biceps Tenodesis, Subacromial Decompression Left Mika Sawyer MD Pre-Op Diagnosis Post-Op Diagnosis (1) Rotator cuff tear, left: (2) SLAP lesion of left shoulder: Meds Allergies and Home Medications Allergies Allergy/AdvReac Type Severity Reaction Status Date / Time No Known Allergies Allergy Verified 09/08/24 09:26 Home Medication ?Medication ?Instructions ?Recorded omeprazole 20 mg capsule,delayed 20 mg PO DAILY #90 caps 05/06/24 release naloxone 4 mg/actuation nasal 1 spray intranasal Q2-3M PRN 08/12/24 spray (Narcan) opioid overdose #2 ea naproxen sodium 220 mg capsule 220 mg PO DAILY PRN 08/12/24 (Aleve) tramadol 50 mg tablet 50 mg PO DAILY PRN pain #30 tabs 08/22/24 Current Visit Medications: Current Medications Generic Name Dose Route Start Last Admin Trade Name Freq PRN Reason Stop Dose Admin Ringer's Solution 1,000 mls @ 30 mls/hr 09/08/24 06:00 09/08/24 10:02 IV 10/07/24 23:59 30 mls/hr INFUSION RADHA Administration Cefazolin Sodium/Dextrose 2 gm in 50 mls @ 100 mls/hr 09/08/24 06:00 Ancef Duplex IVPB 10/07/24 23:59 PREOP RADHA Tranexamic Acid/Sodium Chloride 1,000 mg in 100 mls @ 600 mls/hr 09/08/24 06:00 IVPB 10/07/24 23:59 PREOP RADHA IV Miscellaneous Supplies 1 each 09/08/24 06:00 Iv Access IV 10/07/24 23:59 DIRECTED RADHA Oxycodone HCl 0 mg 09/08/24 07:12 Oxycodone 5 Mg Tab PO 10/08/24 07:11 Q3H PRN PRN Pain Sodium Chloride 0 ml 09/08/24 06:00 Normal Saline Flush 10 Ml Syr IV 10/07/24 23:59 PRN PRN Sodium Chloride 0 ml 09/08/24 06:00 Normal Saline 10 Ml Vial IJ 10/07/24 23:59 DIRECTED PRN Sterile Water 0 ml 09/08/24 06:00 Water,Injection,Sterile 10 Ml Vial IJ 10/07/24 23:59 DIRECTED PRN PFSH Active Problems Active Problems: Problem Status Onset Code Arthritis of knee, left Acute M17.12 SLAP lesion of left shoulder Acute S43.432A History of repair of anterior cruciate ligament of left knee Acute Z98.890 Left knee DJD Acute M17.12 Rotator cuff tear, right Acute M75.101 Rotator cuff tear, left Acute M75.102 GERD (gastroesophageal reflux disease) Chronic K21.9 Hyperlipidemia Acute E78.5 Hypertension Chronic I10 Right shoulder pain Acute M25.511 Left knee pain Acute M25.562 Left shoulder pain Acute M25.512 Liver mass Acute R16.0 Arthralgia Acute M25.50 Family history of abdominal aortic aneurysm Acute Z82.49 Fatigue Acute R53.83 Alcohol use Acute Z78.9 Dyspnea on exertion Acute R06.09 Prepatellar bursitis Acute M70.40 Gout Chronic M10.9 Medical History Medical History Smoker 20 pack year history disposition Diverticulitis large intestine w/o perforation or abscess w/o bleeding Abdominal pain Colitis Back pain Surgical History Surgical History Laparotomy (04/18/15) Tobacco Smoking/Tobacco Use Status: Former Tobacco Use Passive smoking exposure: No Second hand exposure: Yes Alcohol Alcohol Intake: current Alcohol intake frequency: 3 or more drinks per day Alcohol type: beer Details: 3-4 on typical day, 6 or more drinks monthly or less Substance Use Substance use: Never Substance use type: does not use Vital Signs and Lab Results Vital Signs Most Recent Vital Signs in EMR: Most Recent Vital Signs Temp Pulse Resp BP Pulse Ox 36.8 C 65 20 134/99 H 97 09/08/24 09:28 09/08/24 09:28 09/08/24 09:28 09/08/24 09:28 02/27/25 09:28 Lab Results Blood Type / Crossmatch: No Data to Display Complete Blood Count: No Data to Display Complete Metabolic Panel: No Data to Display Liver Function Panel: No Data to Display Coagulation Panel: No Data to Display Cardiac Panel: No Data to Display Arterial Blood Gas: No Data to Display Venous Blood Gas: No Data to Display Pancreas Panel: No Data to Display Thyroid Panel: No Data to Display Infectious Disease: No Data to Display Blood Cultures: No Data to Display Toxicology Panel: No Data to Display Imaging and Studies Imaging and Studies Study information below may be from another EMR and interpreted by another provider. Please see original notes in EMR for more complete details. Echocardiogram Summary: 10/30/22: Conclusion Normal left ventricular wall thickness and chamber size. Estimated ejection fraction is 60%. Wall motion is normal Normal right ventricular size and systolic function Both atria are normal in size Aortic valve is trileaflet with mild regurgitation Made right ventricular systolic pressure is 22 mmHg Anesthesia Assessment and Plan Anesthesia History Personal History: No History of Anesthesia Complications Family History: No Family History of Anesthesia Complications Exercise Tolerance Exercise Tolerance: Metabolic Equivalents>4 Pertinent Negatives Pertinent Negatives: No Symptoms of GERD and No Major Pulmonary Symptoms or Complaints Cardiac & Pulmonary Exam Cardiac Exam: Normal S1/S2 Heart Sounds Pulmonary Exam: Clear Bilateral Breath Sounds Implantable Cardiac Device Does patient have a Pacemaker or an ICD?: No Airway Exam Known Difficult Airway: No Mallampati Class: 2 Mouth Opening: Normal (> 3cm) Thyromental Distance: Greater than 3 cm Facial Hair: Full Niño Neck Range of Motion: Full ROM Neck Circumference: Normal Teeth Condition: Normal Dentition ASA Classification ASA Score: ASA 2 Emergency Case?: No NPO Status NPO Status: NPO Clears >2 hours, Solids >8 hours Anesthesia Plan Resuscitation Status: Full Code Anesthesia Technique: General Anesthesia Airway Planned: Endotracheal Tube Pain Management: Surgeon and patient request nerve block Monitors Used: Standard Monitors and SedLine
[2024-09-08] MEDS: ceFAZolin 2 GM/50 ML BAG IVPB (11:05)
[2024-09-08] MEDS: TRANEXAMIC ACID/SOD. CHL. 1,000 MG/100 ML BAG 600 MG IVPB (11:19)
--- NOTE | 2024-09-08 11:38 | W.ANESNERVE ---
Nerve Block Single Injection Procedure Date and Time Date Performed: 09/08/24 Procedure Start: 10:32 Location Where Procedure Performed Procedure Location: Day Surgery Unit Reason Performed: Postoperative Analgesia Requesting Provider: Mika Sawyer Timeout Performed Timeout Performed: Yes Monitoring Used ECG, Blood Pressure, SpO2 and See EMR for corresponding vital signs Sterility Sterility: Hand Hygiene, Surgical Cap, Surgical Mask, Sterile Gloves and Chlorhexidine Sedation Given During Procedure Sedation Given (Indicate Dose Given): Versed IV Dose:: 2mg Patient Mental Status Patient Mental Status: Sedate with meaningful communication Nerve Block 1st Nerve Block: Laterality: Left Block Type: Interscalene Ultrasound Image Saved?: Yes Needle / Catheter Used: 80mm SonoPlex II Local Anesthetic Bolus (Indicate Dose Given): Lidocaine used for local infiltration of skin, Injected in 3-5ml increments after negative blood aspiration, Bupivacaine 0.5% Dose:: 10mL and Exparel Dose:: 10mL Additives (Indicate Dose Given): None Ultrasound: Sterile probe cover and gel used Nerve Stimulator: Supplement to Ultrasound use and No twitch or parasthesia noted < 0.5 mA Paresthesia: None Procedure Tolerated: No Complications Procedure Outcome: Successful Procedure Comment: Patient tolerated procedure well, no parasthesia noted, but did report a fullness sensation in his neck following the block. This sensation had been discussed with patient and during the consent process. Alfreda Hooker CRNA assist. Performed By: Brionna Morrissey
[2024-09-08] MEDS: Bupivacaine 0.25% Pres-Free W/EPI 30 ML VIAL (11:43)
[2024-09-08] MEDS: EPINEPHrine 10 MG/10 ML ML (13:02)
--- NOTE | 2024-09-08 14:09 | W.ANESPOSTOP ---
Postoperative Evaluation Date, Time and Location Date Performed: 09/08/24 Time Performed: 14:09 Patient Location: PACU Vital Signs Most Recent Imported Vital Signs: Most Recent Vital Signs Temp Pulse Resp BP Pulse Ox 36.5 C 61 21 115/77 96 09/08/24 13:51 09/08/24 13:51 09/08/24 13:51 09/08/24 13:51 09/08/24 13:51 Pain Score Most Recent Pain Score: Most Recent Pain Score Pain Level 0 09/08/24 13:53 Assessment Mental Status: Awake (Alert & Oriented to Patient Baseline) Airway and Respiratory Function: Patent airway with normal (patient baseline) respiratory exam Cardiovascular Function: Hemodynamically Stable Hydration Status: Adequately Hydrated Nausea & Vomiting: No Nausea or Vomiting Pain: Pt. Denies Any Pain Peripheral Nerve Block: Regional nerve block not resolved at time of post operative discharge
== END 2024-09-08 16:07 | disposition home or self-care (01) ==
LOC: SUR 09:00
PROVIDERS: PCP Nurse Practitioner Family; Visit Provider Student in an Organized Health Care Education/Training Program
PROC: (CPT 29827; principal; 2024-09-08 09:00)
DX: M75.102 Unspecified rotator cuff tear or rupture of left shoulder, not specified as traumatic (principal); S43.432A Superior glenoid labrum lesion of left shoulder, initial encounter; M75.52 Bursitis of left shoulder; X58.XXXA Exposure to other specified factors, initial encounter; G89.18 Other acute postprocedural pain
CPT/HCPCS: 29827; 29828; 29823; 29826; 64415; J0131; J0665; J0666; J0690; J1100; J1885; J2003; J2250; J2371; J2405; J2704

== ENCOUNTER 2025-05-08 10:31 | Outpatient (CLI) | payer MEDICAID, SELFPAY ==
--- NOTE | 2025-05-08 11:03 | DI.RAD_ITS ---
Exam(s) XR WRIST RT COMPLETE EXAM: XR WRIST RT COMPLETE CLINICAL HISTORY: pain and swelling M25.531 PAIN RT WRIST. TECHNIQUE: 2D digital imaging was performed of the right wrist. Three views were obtained. PA, lateral and oblique views were obtained. COMPARISON: No exams were available for comparison FINDINGS: BONES: No acute fracture is present. No bony destructive lesion is seen. JOINTS: The carpal bones are normally aligned. The joint spaces are well maintained. SOFT TISSUE: Normal. IMPRESSION: There is no acute abnormality. DATA REPOSITORY: RADIATION DOSE DELIVERED:
== END 2025-05-08 10:51 ==
LOC: DI 10:32
PROVIDERS: PCP Nurse Practitioner Family; Visit Provider Nurse Practitioner Family
DX: M25.531 Pain in right wrist (principal)
CPT/HCPCS: 73110